=== PATIENT | female | born 1975 | race Caucasian/White ===

== ENCOUNTER 2016-08-23 13:20 | Emergency (ER) | payer MEDICAID, OTHER ==
[~2016-08-23] VITALS: Ht 180.3 cm; Wt 67.0 kg
[~2016-08-23 13:20] MED LIST: ALBU8I INH; ALPR0.5T3 PO; GEMF600T PO
[2016-08-23 13:23] VITALS: BP 192/92; PULSE 107; RESP 16; TEMP 97.9; O2SAT 100
[2016-08-23] MEDS ORDERED: DULC100C PO (13:47)
[2016-08-23] MEDS ORDERED: AMLO2.5T PO (13:47)
[2016-08-23] MEDS ORDERED: [UNRECOGNIZED DRUG - CODE] IM (13:47)
[2016-08-23] MEDS ORDERED: FERR325T86 PO (13:47)
[2016-08-23] MEDS ORDERED: NICO21DI6 T-DERMAL (13:47)
[2016-08-23] MEDS ORDERED: BACT800T5 PO (13:47)
[2016-08-23] MEDS ORDERED: FURO1TAB62 PO (13:47)
--- NOTE | 2016-08-23 14:01 | PD ---
HPI . Multiple requests Chief Complaint: Allergic/Adverse Reaction Time Seen by Provider: 13:34 Travel History International Travel<30 days: No Contact w/Intl Traveler<30days: No Traveled to known affect area: No History of Present Illness HPI This patient presents requesting refills on multiple medications. The patient states that she just arrived here from [place] last night. She states that she was hospitalized in [place] from . She reports that she was diagnosed with syphilis. She was given penicillin 4 units IM 1 dose. She states that she is scheduled for doses #2 and 3 on the and September 05. He further states that she needs prescriptions for her iron for anemia, amlodipine for blood pressure, Lasix for fluid and Bactrim for cellulitis. She is also requesting prescriptions for narcotics and NicoDerm patches. I explained to the patient that most people who come to the emergency department have a complaint of some sort. She states that she is here because her legs are itching. PFSH Past Medical History ADHD: Yes Anemia: Yes Asthma: Yes Anxiety: Yes Hypertension: Yes Reproductive: Yes (Syphilis ) Respiratory: Yes ("Water on the lung") Tetanus Vaccination: > 5 Years Influenza Vaccination: No ?: Not LMP: "Last month" Past Surgical History Gynecologic Surgery: Yes (Rt. ovary and fallopian tube removed) Social History Alcohol Use: No Tobacco Use: Yes (1/2 PPD) Substance Use: Yes (Meth/states quit 4 days ago ) Allergies-Medications (Allergen,Severity, Reaction): Coded Allergies: HMG-CoA Reductase Inhibitors (Verified Allergy, Mild, myopathy, 08/23/16) Reported Meds & Prescriptions Reported Meds & Active Scripts Active Bactrim DS (Sulfamethoxazole-Trimethoprim) 800-160 Mg Tab 1 Tab PO BID Bicillin C-R (Penicillin G Benzathine-Procaine) 1,200,000 Unit/2Ml Inj 2,400, 000 Units IM EVERY 7 DAYS Nicoderm CQ Patch (Nicotine) 21 Mg/24 Hr Patch 21 Mg T-DERMAL DAILY Lasix (Furosemide) 20 Mg Tab 20 Mg PO DAILY Ferrousul (Ferrous Sulfate) 325 Mg Tab 325 Mg PO BID Dulcolax Stool Softener (Docusate Sodium) 100 Mg Cap 100 Mg PO BID Amlodipine (Amlodipine Besylate) 2.5 Mg Tab 2.5 Mg PO BID Review of Systems General / Constitutional: No: Fever, Chills Cardiovascular: No: Chest Pain or Discomfort Respiratory: No: Shortness of Breath Gastrointestinal: No: Nausea, Vomiting Skin: Positive Itching, Positive Lesions Psychiatric: Positive: Substance Abuse Physical Exam Narrative GENERAL: This is a 40-year-old woman who appears much older than her stated age. SKIN: Warm and dry. Her lower extremities does have multiple raised, scaly, roundish lesions with central clearing. HEAD: Atraumatic. Normocephalic. EYES: Pupils equal and round. ENT: No nasal bleeding or discharge. Mucous membranes pink and moist. Teeth are in very poor repair. Her mouth has the appearance of "meth mouth." NECK: Trachea midline. Neck is supple. CARDIOVASCULAR: Regular rate and rhythm. I do not hear any murmurs. RESPIRATORY: No accessory muscle use. Lungs are clear with full air movement throughout. GASTROINTESTINAL: Abdomen soft, non-tender, nondistended. MUSCULOSKELETAL: No obvious deformities. No edema. NEUROLOGICAL: Awake and alert. No obvious cranial nerve deficits. Motor grossly within normal limits. Normal speech. PSYCHIATRIC: Appropriate mood and affect; insight and judgment normal. Data Data Last Documented VS Vital Signs Date Time Temp Pulse Resp B/P Pulse Ox O2 Delivery O2 Flow Rate FiO2 08/23/16 13:23 97.9 107 16 192/92 100 Orders Complete Blood Count With Diff (08/23/16 13:41) Basic Metabolic Panel (Bmp) (08/23/16 13:41) Rapid Plasmin Reagin Screen (08/23/16 13:41) Labs Laboratory Tests Test 08/23/16 13:50 White Blood Count 8.0 TH/MM3 Red Blood Count 4.01 MIL/MM3 Hemoglobin 8.8 GM/DL Hematocrit 28.8 % Mean Corpuscular Volume 72.0 FL Mean Corpuscular Hemoglobin 22.0 PG Mean Corpuscular Hemoglobin 30.6 % Concent Red Cell Distribution Width 17.0 % Platelet Count 746 TH/MM3 Mean Platelet Volume 6.4 FL Neutrophils (%) (Auto) 65.7 % Lymphocytes (%) (Auto) 25.0 % Monocytes (%) (Auto) 5.4 % Eosinophils (%) (Auto) 3.3 % Basophils (%) (Auto) 0.6 % Neutrophils # (Auto) 5.3 TH/MM3 Lymphocytes # (Auto) 2.0 TH/MM3 Monocytes # (Auto) 0.4 TH/MM3 Eosinophils # (Auto) 0.3 TH/MM3 Basophils # (Auto) 0.0 TH/MM3 CBC Comment AUTO DIFF Sodium Level 142 MEQ/L Potassium Level 3.7 MEQ/L Chloride Level 107 MEQ/L Carbon Dioxide Level 28.1 MEQ/L Anion Gap 7 MEQ/L Blood Urea Nitrogen 13 MG/DL Creatinine 0.76 MG/DL Estimat Glomerular Filtration 83 ML/MIN Rate Random Glucose 100 MG/DL Calcium Level 8.3 MG/DL MDM Medical Decision Making Medical Screen Exam Complete: Yes Emergency Medical Condition: Yes Differential Diagnosis The differential diagnosis of the skin rash includes but is not limited to allergic urticaria, scabies, insect bites, contact dermatitis Narrative Course This patient presents with a rash on her lower extremities. She has been diagnosed with syphilis at another facility. Patient is also requesting multiple refills. I will check a CBC and a basic metabolic panel adding her for prescriptions for iron and blood pressure medications as well as Lasix. I am not comfortable writing her a prescription for narcotics. I will give her prescriptions for the penicillin injections and the Septra. I have ordered an RPR. I do not know whether or not the results of that today. I plan to refer her to the [facility] for ongoing treatment of her multiple medical problems. CBC & BMP Diagram 08/23/16 13:50 Diagnosis Primary Impression: Skin lesions Additional Impressions: Hypertension Qualified Code: I10 - Essential hypertension Anemia Qualified Code: D64.9 - Anemia, unspecified type Referrals: [facility] 1 week Patient Instructions: General Instructions Departure Forms: Tests/Procedures Scripts Sulfamethoxazole-Trimethoprim (Bactrim DS)800-160 Mg Tab1 Tab PO BID #20 TAB Ref 0 Prov:Mervat Bah MD 08/23/16 Penicillin G Benzathine-Procaine (Bicillin C-R)1,200,000 Unit/2Ml Inj2,400,000 Units IM every 7 days #2 VIAL Ref 0 Prov:Mervat Bah MD 08/23/16 Nicotine Patch (Nicoderm CQ Patch)21 Mg/24 Hr Patch21 Mg T-DERMAL DAILY #30 PATCH Ref 0 Prov:Mervat Bah MD 08/23/16 Furosemide (Lasix)20 Mg Tab20 Mg PO DAILY #30 TAB Ref 0 Prov:Mervat Bah MD 08/23/16 Ferrous Sulfate (Ferrousul)325 Mg [id number] Mg PO BID #60 Prov:Mervat Bah MD 08/23/16 Docusate Sodium (Dulcolax Stool Softener)100 Mg [id number] Mg PO BID #60 CAP Ref 0 Prov:Mervat Bah MD 08/23/16 Amlodipine 2.5 Mg Tab2.5 Mg PO BID #60 TAB Ref 0 Prov:Mervat Bah MD 08/23/16 Disposition: 01 DISCHARGE HOME Condition: Stable Mervat Bah MD Aug 23, 2016 14:01
[2016-08-23 14:02] LABS: AUTOMATED NEUTROPHIL # 5.3 TH/MM3 (1.8-7.7); BASOPHIL % 0.6 % (0.0-2.0); EOSINOPHIL # 0.3 TH/MM3 (0-0.4); EOSINOPHIL % 3.3 % (0.0-4.0); HEMATOCRIT 28.8 % (35.0-46.0); MEAN CORPUSCULAR HGB CONC 30.6 % (32.0-36.0); MONO % 5.4 % (0.0-8.0); NEUT % 65.7 % (16.0-70.0); PLATELET COUNT 746 TH/MM3 (150-450); RED BLOOD COUNT 4.01 MIL/MM3 (4.00-5.30)
[2016-08-23 14:05] LABS: HEMO FLAGS AUTO DIFF
[2016-08-23 14:12] LABS: POTASSIUM 3.7 MEQ/L (3.5-5.1)
[2016-08-23 14:17] LABS: BICARBONATE 28.1 MEQ/L (21.0-32.0)
[2016-08-23 14:48] VITALS: BP 187/92
[2016-08-23 14:50] LABS: PLATELET ESTIMATE SMEAR HIGH (NORMAL); PLATELET MORPHOLOGY NORMAL (NORMAL); SCAN/DIFF AUTO DIFF CONFIRMED
== END 2016-08-23 14:55 | disposition home or self-care (01) ==
LOC: PHED 13:20
DX: R21 Rash and other nonspecific skin eruption (principal); I10 Essential (primary) hypertension; D64.9 Anemia, unspecified; F17.200 Nicotine dependence, unspecified, uncomplicated
CPT/HCPCS: 80048; 85025; 86592; 99284